=== PATIENT | female | born 1980 | race Two or more races ===

== ENCOUNTER 2023-11-12 17:25 | Emergency (ER) | payer MEDICAID, OTHER ==
[~2023-11-12] VITALS: Ht 157.5 cm; Wt 69.7 kg
[2023-11-12] MEDS ORDERED: ceFAZolin IM 1GM/2.5ML STERILE WATER IM ONE (21:45)
[2023-11-12 23:31] VITALS: PULSE 63; RESP 18; O2SAT 98
[2023-11-12] MEDS: HYDROcodone-ACET 5/325MG TAB PO ONE (23:35)
[2023-11-12] MEDS: ceFAZolin 1GM/50ML 50 ML IV ONE ×2 (23:35)
[2023-11-12] MEDS: TETANUS-DIPTH-ACEL PERTUSSIS 0.5ML SYR Tdap IM ONE (23:36)
[2023-11-13 01:06] VITALS: BP 132/76; PULSE 61; RESP 18; TEMP 98; O2SAT 100
== END 2023-11-13 02:50 | disposition short-term general hospital (02) ==
LOC: ER 17:25
DX: S01.21XA Laceration without foreign body of nose, initial encounter (principal); S01.419A Laceration without foreign body of unspecified cheek and temporomandibular area, initial encounter; W54.0XXA Bitten by dog, initial encounter; Y93.01 Activity, walking, marching and hiking; Y92.89 Other specified places as the place of occurrence of the external cause; Y99.8 Other external cause status
CPT/HCPCS: 70486; 90471; 90715; 96365; 99285; J0690